=== PATIENT | male | born 1960 | race Caucasian/White ===

== ENCOUNTER 2016-07-27 10:18 | Emergency (ER) | payer BC ==
[2016-07-27 10:37] VITALS: BP 139/72
--- NOTE | 2016-07-27 11:17 | UC ---
Ear Complaint HPI - HPI Summary HPI Summary: complaint of left ear pressure slightly painful that started approx 2 weeks now his ear feels painful sometimes gets a ringing in his ear intermittent headaches denies nasal congestion, fever and cough using nasal flush d/t wearing cpap-2-3x week - History of Current Complaint Chief Complaint: UCEar Stated Complaint: EAR PAIN Time Seen by Provider: 07/27/16 11:10 Hx Obtained From: Patient - Allergies/Home Medications Allergies/Adverse Reactions: Allergies Allergy/AdvReac Type Severity Reaction Status Date / Time No Known Allergies Allergy Verified 11/02/12 13:38 Home Medications: Home Medications metFORMIN* [Glucophage 1000 MG TAB *] 1,000 mg PO DAILY 07/27/16 [History Confirmed 07/27/16] PMH/Surg Hx/FS Hx/Imm Hx Previously Healthy: Yes Endocrine History Of: Reports: Diabetes Denies: Thyroid Disease Cardiovascular History Of: Reports: Hypertension Denies: Cardiac Disorders Respiratory History Of: Denies: COPD, Asthma GI/ History Of: Denies: Ulcer - Surgical History Surgical History: None - Family History Known Family History: Positive: Cardiac Disease - mother, Hypertension - mother , Diabetes - mother - Social History Occupation: Employed Full-time Lives: With Family Alcohol Use: Rare Substance Use Type: None Smoking Status (MU): Former Smoker Amount Used/How Often: 2 ppd Length of Time of Smoking/Using Tobacco: 10 years When Did the Patient Quit Smoking/Using Tobacco: 30 years ago - Immunization History Most Recent Influenza Vaccination: 2013/2014 Review of Systems Constitutional: Negative Skin: Negative Eyes: Negative ENT: Ear Ache Respiratory: Negative Cardiovascular: Negative Gastrointestinal: Negative Genitourinary: Negative Motor: Negative Neurovascular: Negative Musculoskeletal: Negative Neurological: Headache Psychological: Negative All Other Systems Reviewed And Are Negative: Yes Physical Exam Triage Information Reviewed: Yes Appearance: No Pain Distress, Well-Nourished Vital Signs: Initial Vital Signs Temp 97.8 F 07/27/16 10:31 Pulse 77 07/27/16 10:31 Resp 16 07/27/16 10:31 BP 139/72 07/27/16 10:31 Pulse Ox 99 07/27/16 10:31 Vital Signs Reviewed: Yes Eyes: Positive: Conjunctiva Clear ENT: Positive: Pharynx normal, TM bulging. Negative: Nasal congestion, Nasal drainage, TM red Neck: Positive: Supple, No Lymphadenopathy Respiratory: Positive: Lungs clear, Normal breath sounds, No respiratory distress, No accessory muscle use Cardiovascular: Positive: RRR, No Murmur, Pulses Normal Abdomen Description: Positive: Nontender, Soft, Distended Bowel Sounds: Positive: Present Musculoskeletal: Positive: No Edema Neurological: Positive: Alert Psychological Exam: Normal Skin Exam: Normal Ear Complaint Course/Dx - Differential Dx/Diagnosis Differential Diagnosis/HQI/PQRI: Otitis Externa, Otitis Media, Other - eustachion tube dysfunction Provider Diagnoses: eustachion tube dysfunction- bilateral. Discharge - Discharge Plan Condition: Stable Disposition: HOME Prescriptions: Fluticasone NASAL SPRAY 50MCG* [Flonase NASAL SPRAY 50MCG*] 2 spray BOTH NARES DAILY #1 btl Patient Education Materials: Eustachian Tube Dysfunction (GEN) Referrals: Souleymane Tyson MD [Primary Care Provider] - Additional Instructions: Please start as directed Increase fluids and rest Take acetaminophen for pain Please review your discharge instructions. If your symptoms do not improve please call your primary care provider or return to urgent care. Your blood pressure is elevated. Please contact your primary care provider within 1 day -4 weeks for further evaluation.
== END 2016-07-27 11:39 | disposition home or self-care (01) ==
LOC: UCEAST 10:18
DX: H69.93 Unspecified Eustachian tube disorder, bilateral (principal); E11.9 Type 2 diabetes mellitus without complications; Z79.84 Long term (current) use of oral hypoglycemic drugs; I10 Essential (primary) hypertension; Z87.891 Personal history of nicotine dependence
CPT/HCPCS: 99212; G0463

== ENCOUNTER 2017-01-10 09:26 | Emergency (ER) | payer BC ==
--- NOTE | 2017-01-10 11:20 | ED ---
Lower Extremity - HPI Summary HPI Summary: Pt here w/ Lt knee pain this morning. Was stepping up onto his bus with his Rt leg and as he pushed off with his Lt leg, he felt a "pop" and had acute pain behind his knee. Pain w/ weight bearing and with flexion past 90 degrees. Denies numbness, tingling, weakness. No previous h/o knee issues. Took 400mg ibuprofen prior to arrival - does not want anything more for pain at this time. - History of Current Complaint Chief Complaint: EDExtremityLower Stated Complaint: LT KNEE INJURY Time Seen by Provider: 01/10/17 10:38 Hx Obtained From: Patient Pain Intensity: 8 - Allergies/Home Medications Allergies/Adverse Reactions: Allergies Allergy/AdvReac Type Severity Reaction Status Date / Time No Known Allergies Allergy Verified 11/02/12 13:38 PMH/Surg Hx/FS Hx/Imm Hx Previously Healthy: Yes Endocrine/Hematology History: Reports: Hx Diabetes - well controlled per pt Denies: Hx Anticoagulant Therapy, Hx Blood Disorders, Hx Thyroid Disease Cardiovascular History: Reports: Hx Hypertension - mildly elevated - takes ramipril daily Respiratory History: Denies: Hx Asthma, Hx Chronic Obstructive Pulmonary Disease (COPD) GI History: Denies: Hx Gastroesophageal Reflux Disease, Hx Ulcer Musculoskeletal History: Denies: Hx Arthritis, Hx Scoliosis Neurological History: Denies: Hx Headaches, Other Neuro Impairments/Disorders Infectious Disease History: No Infectious Disease History: Denies: Hx Clostridium Difficile, Hx Hepatitis, Hx Human Immunodeficiency Virus (HIV), Hx of Known/Suspected MRSA, Hx Shingles, Hx Tuberculosis, Hx Known/ Suspected VRE, Hx Known/Suspected VRSA, History Other Infectious Disease, Traveled Outside the [place] in Last 30 Days - Family History Known Family History: Positive: Cardiac Disease - mother, Hypertension - mother , Diabetes - mother - Social History Occupation: Employed Full-time - drives for [employer] Lives: With Family Alcohol Use: Rare Hx Substance Use: No Substance Use Type: Reports: None Hx Tobacco Use: Yes Smoking Status (MU): Former Smoker Amount Used/How Often: 2 ppd Length of Time of Smoking/Using Tobacco: 10 years Review of Systems Constitutional: Negative Negative: Fever, Chills, Fatigue Musculoskeletal: Other - see HPI Negative: Bruising Neurological: Negative Negative: Weakness, Paresthesia, Numbness Psychological: Normal All Other Systems Reviewed And Are Negative: Yes Physical Exam Triage Information Reviewed: Yes Vital Signs On Initial Exam: Initial Vitals Temp Pulse Resp BP Pulse Ox 97.7 F 103 17 155/68 95 01/10/17 09:29 01/10/17 09:29 01/10/17 09:29 01/10/17 09:29 01/10/17 09:29 Vital Signs Reviewed: Yes Appearance: Positive: Well-Appearing, No Pain Distress - at rest - pain w/ moving, attempting to bear weight, Obese Skin: Positive: Warm, Dry - no erythema, no edema, no ecchymosis over affected area Head/Face: Positive: Normal Head/Face Inspection Eyes: Positive: EOMI ENT: Positive: Hearing grossly normal Respiratory/Lung Sounds: Positive: Breath Sounds Present Cardiovascular: Positive: Pulses are Symmetrical in both Upper and Lower Extremities Musculoskeletal: Positive: Strength/ROM Intact - ankles, hips are WNL, Limited @ - Lt knee ROM limited d/t pain - can extend w/o pain but pain w/ flexion past 90 degrees, Other - + modified Maris; popliteal fossa TTP - no etienne edema but difficult to asses d/t body habitus Neurological: Positive: Normal, Sensory/Motor Intact, Alert, Oriented to Person Place, Time, CN Intact II-III Psychiatric: Positive: Normal Diagnostics - Vital Signs Vital Signs Temp Pulse Resp BP Pulse Ox 01/10/17 09:29 97.7 F 103 17 155/68 95 - Laboratory Lab Statement: Any lab studies that have been ordered have been reviewed, and results considered in the medical decision making process. Lower Extremity Course/Dx - Course Course Of Treatment: Suspect ligament sprain vs. meniscal injury - immobilizer + crutches - RICE - f/u w/ PCP. Danger s/sx of when to return discussed here today. Pt agrees w/ plan. - Diagnoses Provider Diagnoses: Left knee sprain Discharge - Discharge Plan Condition: Stable Disposition: HOME Patient Education Materials: Knee Sprain (ED), Knee Immobilizer (ED), Crutch Instructions (ED) Referrals: Souleymane Tyson MD [Primary Care Provider] - Additional Instructions: Rest, ice, elevate, Compress with MOISE wrap as needed for swelling, comfort You may take acetaminophen 650mg every 6hours for pain as well as try topical analgesic agents for pain Follow-up with PCP in 1-2 weeks if pain persists *If you develop numbness, tingling, weakness, coolness of extremity return to ED
--- NOTE | 2017-01-10 12:29 | RAD ---
Edited for charges. HISTORY: Left knee pain COMPARISONS: None VIEWS: 4, Frontal, lateral, axial, and oblique views of the left knee FINDINGS: BONE DENSITY: Normal. BONES: There is no displaced fracture. JOINTS: There is mild tricompartmental osteoarthritis with relative sparing of the lateral compartment. There is a small suprapatellar joint effusion ALIGNMENT: There is no dislocation. SOFT TISSUES: Unremarkable. OTHER FINDINGS: None. IMPRESSION: MILD OSTEOARTHRITIS. SMALL JOINT EFFUSION. NO ACUTE OSSEOUS INJURY. IF SYMPTOMS PERSIST, RECOMMEND REPEAT IMAGING. AYDEN
[2017-01-10 14:26] VITALS: BP 144/80
== END 2017-01-10 14:13 | disposition home or self-care (01) ==
LOC: ED 09:26
DX: M25.562 Pain in left knee (principal); S83.92XA Sprain of unspecified site of left knee, initial encounter; X50.9XXA Other and unspecified overexertion or strenuous movements or postures, initial encounter; Y93.9 Activity, unspecified; Y92.9 Unspecified place or not applicable; E11.9 Type 2 diabetes mellitus without complications; Z87.891 Personal history of nicotine dependence
CPT/HCPCS: 99282

== ENCOUNTER 2018-05-08 11:18 | Emergency (ER) | payer BC ==
[2018-05-08 11:28] VITALS: BP 163/85
--- NOTE | 2018-05-08 11:28 | UC ---
Hand/Wrist HPI - HPI Summary HPI Summary: 57 yo male presents with RIGHT 5th digit redness and tenderness getting worse for the last 4 days. He tells me that about 3-4 days ago he noticed a small red bump on the bottom part of his right 5th digit that has gotten larger, red, and tender since. Redness is spreading down to the 5th MCP. He is diabetic and concerned about infection. Denies fever or injury to the area. - History Of Current Complaint Chief Complaint: UCUpperExtremity Stated Complaint: HAND PAIN Time Seen by Provider: 05/08/18 11:27 Hx Obtained From: Patient Onset/Duration: Gradual Onset Severity Initially: Mild Severity Currently: Mild Pain Intensity: 2 Pain Scale Used: 0-10 Numeric - Allergies/Home Medications Allergies/Adverse Reactions: Allergies Allergy/AdvReac Type Severity Reaction Status Date / Time No Known Allergies Allergy Verified 05/08/18 11:28 Home Medications: Home Medications Dulaglutide [Trulicity] mg SQ 05/08/18 [History] PMH/Surg Hx/FS Hx/Imm Hx Endocrine History: Diabetes, Dyslipidemia Cardiovascular History: Hypertension Other History Of: Negative For: Anticoagulant Therapy - Surgical History Surgical History: None - Family History Known Family History: Positive: Cardiac Disease - mother, Hypertension - mother , Diabetes - mother - Social History Lives: With Family Alcohol Use: Rare Substance Use Type: None Smoking Status (MU): Former Smoker Amount Used/How Often: 2 ppd Length of Time of Smoking/Using Tobacco: 10 years When Did the Patient Quit Smoking/Using Tobacco: 30 years ago - Immunization History Most Recent Influenza Vaccination: 2013/2014 Review of Systems All Other Systems Reviewed And Are Negative: Yes Constitutional: Positive: Negative Skin: Positive: Other - redness and pain right 5th digit Respiratory: Positive: Negative Cardiovascular: Positive: Negative Neurovascular: Positive: Negative Musculoskeletal: Positive: Negative Neurological: Positive: Negative Psychological: Positive: Negative Physical Exam - Summary Physical Exam Summary: GENERAL: NAD. WDWN. No pain distress. SKIN: RIGHT 5th digit: dorsal aspect at proximal phalanx with 4mm diameter nodule vs abscess. Mild overlying warmth with erythema extending down to the right 5th MCP. No open wound, drainage, or streaking. CHEST: No accessory muscle use. Breathing comfortably and in no distress. CV: Pulses intact radial and ulnar. Cap refill <2seconds MSK: FROM right 5th digit. NEURO: Alert. Sensations intact hand and all fingers. PSYCH: Age appropriate behavior. Triage Information Reviewed: Yes Vital Signs: Vital Signs: Temp Pulse Resp BP Pulse Ox 97.0 F 87 18 163/85 98 05/08/18 11:24 05/08/18 11:24 05/08/18 11:24 05/08/18 11:24 05/08/18 11:24 Vital Signs Reviewed: Yes Hand/Wrist Course/Dx - Course Course Of Treatment: Suspect folliculitis vs abscess. Will treat with keflex and have him f/u if the area does not improve. - Differential Dx/Diagnosis Provider Diagnosis: Abscess Discharge - Sign-Out/Discharge Documenting (check all that apply): Patient Departure All imaging exams completed and their final reports reviewed: No Studies - Discharge Plan Condition: Stable Disposition: HOME Prescriptions: Cephalexin CAP* [Keflex CAP*] 500 mg PO BID #14 cap Patient Education Materials: Folliculitis (ED) Referrals: Souleymane Tyson MD [Primary Care Provider] - Additional Instructions: If you develop a fever, shortness of breath, chest pain, new or worsening symptoms - please call your PCP or go to the ED. Your blood pressure was high at todays visit. Please see your primary provider within 4 weeks for recheck and re-evaluation. - Billing Disposition and Condition Condition: STABLE Disposition: Home - Attestation Statements Provider Attestation: I was available for consult. This patient was seen by the AYO. The patient was not presented to, seen by, or examined by me. -Nhung
== END 2018-05-08 11:40 | disposition home or self-care (01) ==
LOC: UCEAST 11:18
DX: L02.511 Cutaneous abscess of right hand (principal); Z87.891 Personal history of nicotine dependence
CPT/HCPCS: 99212; G0463